=== PATIENT | female | born 1990 | race Caucasian/White ===

== ENCOUNTER 2020-12-24 12:31 | Day surgery (SDC) | payer BC ==
[2020-12-24] MEDS: Lactated Ringer's 1,000 ML IV SCH ×2 (13:04→14:12)
[2020-12-24 13:13] VITALS: BMI 39.3
[2020-12-24] MEDS ORDERED: Ondansetron PF 4 MG/2 ML Vial IVP PRN (13:42)
[2020-12-24] MEDS ORDERED: hydrALAZINE 20 MG/ML VIAL SLOW IVP PRN (13:42)
== END 2020-12-24 15:18 | disposition home health service (06) ==
LOC: CSHLD/OP 12:31
PROVIDERS: ATTEND Obstetrics & Gynecology
DX: O99.891 Other specified diseases and conditions complicating pregnancy (principal); O99.283 Endocrine, nutritional and metabolic diseases complicating pregnancy, third trimester; R19.7 Diarrhea, unspecified; R11.2 Nausea with vomiting, unspecified; E86.0 Dehydration; Z3A.37 37 weeks gestation of pregnancy; Z88.0 Allergy status to penicillin; Z79.899 Other long term (current) drug therapy
CPT/HCPCS: J2405

== ENCOUNTER 2021-01-08 15:38 | Inpatient (IN) | payer BC ==
[2021-01-08 16:28] VITALS: BMI 40.0
[2021-01-08] MEDS ORDERED: Penicillin G Potassium 5 MILL.UNITS VIAL ONE (16:45)
[2021-01-08] MEDS ORDERED: Butorphanol Tartrate 1 MG/ML VIAL SLOW IVP PRN (16:47)
[2021-01-08] MEDS ORDERED: Promethazine HCl 25 MG/ML VIAL IM PRN (16:47)
[2021-01-08] MEDS ORDERED: Lidocaine 1% (PF) 30 ML VIAL SC PRN (16:47)
[2021-01-08] MEDS ORDERED: HYDROcodone/Acetaminophen 5/325 mg Tablet PO PRN ×2 (16:47)
[2021-01-08] MEDS ORDERED: Lactated Ringer's 1,000 ML IV PRN (16:47)
[2021-01-08] MEDS ORDERED: Ibuprofen 800 MG TAB PO PRN (16:47)
[2021-01-08] MEDS ORDERED: hydrALAZINE 20 MG/ML VIAL SLOW IVP PRN ×2 (16:47→19:08)
[2021-01-08] MEDS ORDERED: Misoprostol 200 MCG TAB PR PRN (16:47)
[2021-01-08] MEDS ORDERED: Methylergonovine 0.2 MG/ML VIAL IM PRN (16:47)
[2021-01-08] MEDS ORDERED: Ondansetron PF 4 MG/2 ML Vial IVP PRN ×2 (16:47→19:08)
[2021-01-08 17:17] LABS: Mean Corpuscular HGB CONC 34.5 g/dL (32.0-36.0); Mean Corpuscular Hemoglobin 27.8 pg (27.0-33.0); Mean Corpuscular Volume 80.7 fl (81.6-98.3); Mean Platelet Volume 10.7 fl (7.4-10.4); Platelet Count 251 10x3/uL (150-450); RBC Distribution Width 14.4 % (11.5-14.5); Red Blood Cell (RBC) Count 4.67 10x6/uL (3.90-5.03); White Blood Cell (WBC) Count 13.5 10x3/uL (3.5-10.5)
[2021-01-08] MEDS ORDERED: Lidocaine 1% (PF) 30 ML VIAL ONE (17:19)
[2021-01-08] MEDS ORDERED: NS w/ Oxytocin 30 units 500 ML ONE (17:19)
[2021-01-08] MEDS: NS w/ Oxytocin 30 units 500 ML IV SCH ×2 (17:19→18:03)
[2021-01-08 17:45] LABS: Hep B Surf Ag Non-Reactive S/CO (NonReactive); Syphilis Antibody Nonreactive (Nonreactive); Syphilis Antibody Index 0.04 S/CO (<1.00 Non-Reactive)
[2021-01-08 17:47] LABS: HBSAg Index 0.18 S/CO (0-0.99)
[2021-01-08] MEDS ORDERED: Phytonadione Neonatal 1 MG/0.5 ML AMP ONE (18:10)
[2021-01-08] MEDS ORDERED: Benzocaine-Menthol 82.5 ML CAN TOP PRN (19:08)
[2021-01-08] MEDS ORDERED: Preparation H Ointment 28 GM TUBE PR PRN (19:08)
[2021-01-08] MEDS ORDERED: Milk Of Magnesia 30 ML UDCUP PO PRN (19:08)
[2021-01-08] MEDS ORDERED: Lanolin Ointment 7 GM TUBE TOP PRN (19:08)
[2021-01-08] MEDS ORDERED: Bisacodyl 10 MG SUPP PR PRN (19:08)
[2021-01-08] MEDS ORDERED: diphenhydrAMINE 25 MG CAP PO PRN (19:08)
[2021-01-08 20:15] LABS: SARS-CoV-2 NAA Rapid Test Not Detected (NotDetected)
[2021-01-08] MEDS: Ibuprofen 800 MG TAB PO PRN (22:01)
[2021-01-08] MEDS: Docusate Calcium (SURFAK) 240 MG CAP PO SCH (22:01)
[2021-01-09] MEDS ORDERED: Vancomycin HCl 1 GM in Sodium Chloride 0.9% 250 ML 250 ML IVPB SCH (05:00)
[2021-01-09] MEDS: Ibuprofen 800 MG TAB PO PRN ×3 (06:59→20:33)
[2021-01-09] MEDS: Ferrous Sulfate 325 MG TAB PO SCH ×2 (08:18→15:28)
[2021-01-09] MEDS: Docusate Calcium (SURFAK) 240 MG CAP PO SCH ×2 (09:05→22:05)
[2021-01-09] MEDS: Prenatal Vitamin 1 TAB PO SCH (09:05)
[2021-01-09] MEDS ORDERED: Boostrix 0.5 ML (Tdap) VIAL IM ONE (19:08)
[2021-01-10] MEDS: Ibuprofen 800 MG TAB PO PRN (06:53)
[2021-01-10 07:56] VITALS: BP 102/57; TEMP 98.5
[2021-01-10] MEDS: Ferrous Sulfate 325 MG TAB PO SCH (08:13)
[2021-01-10] MEDS: Docusate Calcium (SURFAK) 240 MG CAP PO SCH (09:15)
[2021-01-10] MEDS: Prenatal Vitamin 1 TAB PO SCH (09:15)
== END 2021-01-10 14:35 | disposition home or self-care (01) | DRG 807 ==
LOC: CSHLD/OP 15:38 → CSHLD 18:17 → CSHPP 20:36
PROVIDERS: ADMIT Obstetrics & Gynecology; ATTEND Obstetrics & Gynecology
PROC: 10E0XZZ Delivery of Products of Conception, External Approach (ICD-10-PCS; principal; 2021-01-08)
PROC: 0HQ9XZZ Repair Perineum Skin, External Approach (ICD-10-PCS; 2021-01-08)
DX: O76 Abnormality in fetal heart rate and rhythm complicating labor and delivery (principal); Z37.0 Single live birth; Z3A.39 39 weeks gestation of pregnancy; Z20.822 Contact with and (suspected) exposure to COVID-19; O62.3 Precipitate labor; O99.824 Streptococcus B carrier state complicating childbirth; O99.284 Endocrine, nutritional and metabolic diseases complicating childbirth; E28.2 Polycystic ovarian syndrome; O70.0 First degree perineal laceration during delivery; Z88.0 Allergy status to penicillin; Z91.040 Latex allergy status
CPT/HCPCS: 36415; 85027; 86780; 86850; 86900; 86901; 87340; J2001; J2540; J2590; J3370; J3430; U0002

== ENCOUNTER → 2022-10-16 | Day surgery (SDC) | payer BC | LOC: CSHSDC/OP 17:09 | PROVIDERS: ATTEND Emergency Medicine | DX: M79.672 Pain in left foot (principal) ==

== ENCOUNTER 2023-10-12 21:22 | Inpatient (IN) | payer BC ==
[2023-10-12 21:53] LABS: Fetal Membranes Rupture RUPTURE DETECTED (No Rupture)
[2023-10-12] MEDS ORDERED: hydrALAZINE 20 MG/ML VIAL SLOW IVP PRN ×2 (21:55→22:25)
[2023-10-12] MEDS ORDERED: Misoprostol 200 MCG TAB PR PRN (22:25)
[2023-10-12] MEDS ORDERED: Methylergonovine 0.2 MG/ML VIAL IM PRN (22:25)
[2023-10-12] MEDS ORDERED: Diphenoxylate HCl/Atropine Tablet PO PRN (22:25)
[2023-10-12] MEDS ORDERED: fentaNYL 50 mcg/mL 1 mL Vial SLOW IVP PRN (22:25)
[2023-10-12] MEDS ORDERED: Carboprost 250 MCG/ML AMP IM PRN (22:25)
[2023-10-12] MEDS ORDERED: Lidocaine 1% (PF) 30 ML VIAL SC PRN ×2 (22:25→22:29)
[2023-10-12] MEDS ORDERED: Ondansetron PF 4 MG/2 ML Vial IVP PRN (22:25)
[2023-10-12] MEDS ORDERED: Promethazine HCl 25 MG/ML VIAL IM PRN (22:25)
[2023-10-12] MEDS ORDERED: Tranexamic Acid 1,000 MG/10 ML VIAL IVP PRN (22:25)
[2023-10-12] MEDS ORDERED: Acetaminophen 500 MG TAB PO PRN (22:25)
[2023-10-12] MEDS ORDERED: Ibuprofen 800 MG TAB PO PRN (22:25)
[2023-10-12] MEDS ORDERED: Oxytocin 30 units/NS 500 ML 500 ML IV SCH ×2 (22:30)
[2023-10-12] MEDS ORDERED: CEFAZOLIN 2 GM in Sodium Chloride 0.9% 100 ML IVPB SCH (22:30)
[2023-10-12] MEDS ORDERED: CEFAZOLIN 1 GM in Sodium Chloride 0.9% 100 ML IVPB SCH (22:30)
[2023-10-12] MEDS ORDERED: Lactated Ringer's 1,000 ML IV SCH (22:30)
[2023-10-12] MEDS ORDERED: Misoprostol 100 MCG TAB VAG SCH (22:30)
[2023-10-12 22:41] LABS: Hematocrit 33.9 % (34.9-44.5); Hemoglobin 11.4 g/dL (12.0-15.5); Mean Corpuscular HGB CONC 33.6 g/dL (32.0-36.0); Mean Corpuscular Hemoglobin 26.8 pg (27.0-33.0); Mean Corpuscular Volume 79.8 fL (81.6-98.3); Mean Platelet Volume 10.5 fL (7.4-10.4); Platelet Count 208 10x3/uL (150-450); RBC Distribution Width 14.1 % (11.5-14.5); Red Blood Cell (RBC) Count 4.25 10x6/uL (3.90-5.03); White Blood Cell (WBC) Count 10.1 10x3/uL (3.5-10.5)
[2023-10-12 23:09] LABS: HBsAg Index 0.17 S/CO (0-0.99); Hep B Surf Ag - L&D Non-Reactive S/CO (NonReactive)
[2023-10-12 23:10] LABS: Syphilis Antibody Nonreactive (Nonreactive); Syphilis Antibody Index 0.03 S/CO (<1.00 Non-Reactive)
[2023-10-12 23:52] VITALS: BMI 38.6
[2023-10-13] MEDS: Oxytocin 30 units/NS 500 ML 500 ML IV SCH (07:15)
[2023-10-13] MEDS ORDERED: Lanolin Ointment 7 GM TUBE TOP PRN (07:23)
[2023-10-13] MEDS ORDERED: Milk Of Magnesia 30 ML UDCUP PO PRN (07:23)
[2023-10-13] MEDS ORDERED: diphenhydrAMINE 25 MG CAP PO PRN (07:23)
[2023-10-13] MEDS ORDERED: Ondansetron PF 4 MG/2 ML Vial IVP PRN (07:23)
[2023-10-13] MEDS ORDERED: Preparation H Ointment 28 GM TUBE PR PRN (07:23)
[2023-10-13] MEDS ORDERED: Promethazine HCl 25 MG/ML VIAL IM PRN (07:23)
[2023-10-13] MEDS ORDERED: Bisacodyl 10 MG SUPP PR PRN (07:23)
[2023-10-13] MEDS ORDERED: hydrALAZINE 20 MG/ML VIAL SLOW IVP PRN (07:23)
[2023-10-13] MEDS ORDERED: Benzocaine-Menthol 82.5 ML CAN TOP PRN (07:23)
[2023-10-13] MEDS: Boostrix 0.5 ML (Tdap) VIAL (>/=7 yrs of age) IM ONE (10:05)
[2023-10-13] MEDS: Ferrous Sulfate 325 MG TAB PO SCH (10:05)
[2023-10-13] MEDS: Docusate 100 MG CAP PO SCH (10:06)
[2023-10-13] MEDS: Ibuprofen 800 MG TAB PO SCH (14:16)
[2023-10-13] MEDS ORDERED: Acetaminophen 500 MG TAB PO PRN (16:46)
[2023-10-14 08:12] VITALS: BP 112/64; TEMP 98.2
== END 2023-10-14 18:45 | disposition home or self-care (01) | DRG 807 ==
LOC: CSHLD/OP 21:22 → CSHLD 22:25 → CSHPP 10-13 09:30
PROVIDERS: ADMIT Obstetrics & Gynecology; ATTEND Obstetrics & Gynecology
PROC: 10E0XZZ Delivery of Products of Conception, External Approach (ICD-10-PCS; principal; 2023-10-13)
DX: O42.02 Full-term premature rupture of membranes, onset of labor within 24 hours of rupture (principal); Z37.0 Single live birth; Z3A.37 37 weeks gestation of pregnancy; O36.5930 Maternal care for other known or suspected poor fetal growth, third trimester, not applicable or unspecified; O99.824 Streptococcus B carrier state complicating childbirth; O99.284 Endocrine, nutritional and metabolic diseases complicating childbirth; E28.2 Polycystic ovarian syndrome; O99.214 Obesity complicating childbirth; O62.3 Precipitate labor; Z88.0 Allergy status to penicillin; Z91.040 Latex allergy status
CPT/HCPCS: 84112; 85027; 86780; 86850; 86900; 86901; 87340; 99285; J2590